=== PATIENT | female | born 1985 | race Caucasian/White ===

== ENCOUNTER 2017-03-28 01:31 | Inpatient (IN) | payer OTHER ==
[2017-03-28] VITALS (11 sets, daily range): BP systolic 121–141; BP diastolic 61–91
[~2017-03-28] VITALS: Ht 160 cm; Wt 92.7 kg
[~2017-03-28 01:31] MED LIST: LO-DOSE ASPIRIN81 M2 PO; MOTRIN600 MG PO; VICODIN 5-3001 EACH PO
[2017-03-28 03:54] LABS: POINT-OF-CARE METER ID UU13113692
[2017-03-28] MEDS ORDERED: IBUPROFEN800 MG PO (08:23)
[2017-03-28] MEDS ORDERED: ENDOCET 5-3251 EACH PO (08:23)
[2017-03-29 03:11] VITALS: BP 121/66
[2017-03-29 06:27] LABS: EOSINOPHIL (%) 0.5 % (0-5); EOSINOPHIL COUNT 0.1 K/uL (0-0.3); HEMATOCRIT 32.1 % (36.0-46.0); IMMATURE GRANULOCYTE (%) 0.6 % (0.0-0.7); IMMATURE GRANULOCYTE COUNT 0.1 K/uL; INSTRUMENT ABS NEUTROPHIL CT 7.6 K/uL; LYMPHOCYTE COUNT 1.3 K/uL (1.0-2.8); MCH 29.2 PG (29.0-34.0); MCHC 32.4 G/DL (30.0-36.0); MCV 90.2 FL (83-99); MEAN PLAT.VOLUME 11.7 uM^3 (9.5-12.4); MONOCYTE (%) 7.7 % (3-12); MONOCYTE COUNT 0.8 K/uL (0-0.8); NEUTROPHIL (%) 77.8 % (45-76); NEUTROPHIL COUNT 7.6 K/uL (1.8-6.4); PLATELET COUNT 149 K/uL (156-360); RBC DIS.WIDTH-CV 14.2 % (11.8-14.6); RBC DIS.WIDTH-SD 46.4 % (39-53); RED BLOOD COUNT 3.56 M/uL (3.80-5.20)
[2017-03-29 06:50] LABS: WHITE BLOOD COUNT 9.7 K/uL (4.1-10.2)
[2017-03-29 07:20] VITALS: BP 141/82
[2017-03-29 19:47] VITALS: BP 140/72
[2017-03-29 23:33] VITALS: BP 121/67
[2017-03-30 03:34] VITALS: BP 152/85
[2017-03-30 07:10] VITALS: BP 127/76
[2017-03-30 14:51] VITALS: BP 141/65
[2017-03-30 23:15] VITALS: BP 136/70
[2017-03-31 08:30] VITALS: BP 125/71
[2017-03-31] MEDS ORDERED: NORCO 5/3251 TABLET PO (10:31)
[2017-03-31] MEDS ORDERED: ZYRTEC10 M3 PO (10:54)
== END 2017-03-31 13:14 | disposition home or self-care (01) | DRG 765 ==
LOC: 2SOUTH → 2WEST 01:51 → 2SOUTH 13:19 → 2WEST 03-31 13:14
PROVIDERS: Obstetrics & Gynecology
PROC: 10D00Z1 Extraction of Products of Conception, Low, Open Approach (ICD-10-PCS; principal; 2017-03-28)
DX: O34.211 Maternal care for low transverse scar from previous cesarean delivery (principal); O69.81X0 Labor and delivery complicated by cord around neck, without compression, not applicable or unspecified; N85.8 Other specified noninflammatory disorders of uterus; O24.420 Gestational diabetes mellitus in childbirth, diet controlled; O10.92 Unspecified pre-existing hypertension complicating childbirth; O99.214 Obesity complicating childbirth; E66.9 Obesity, unspecified; Z68.37 Body mass index [BMI] 37.0-37.9, adult; Z22.330 Carrier of Group B streptococcus; Z3A.39 39 weeks gestation of pregnancy; Z37.0 Single live birth
CPT/HCPCS: 36415; 82948; 85025; 86900; 86901; J0690; J1170; J2175; J2274; J2540; J2765; J3010; J7120